=== PATIENT | male | born 1985 ===

== ENCOUNTER → 2016-05-15 | Outpatient (CLI) | payer OTHER ==
[2016-05-15 08:48] LABS: BASO % 1 % (0-3); EOS % 3 % (0-3); HEMOGLOBIN 15.2 g/dL (13.0-17.5); LYMPH # 1.8 x10^3/uL (1.0-4.8); LYMPH % 33 % (24-48); MEAN CORPUSCULAR HEMOGLOBIN 30 pg (25-35); MEAN CORPUSCULAR HGB CONC 35 g/dL (31-37); MEAN CORPUSCULAR VOLUME 86 fL (79-100); MONO % 9 % (0-9); NEUT % 55 % (31-73); PLATELET COUNT 155 x10^3/uL (140-400); RED BLOOD COUNT 5.13 x10^6/uL (4.30-5.70); RED CELL DISTRIBUTION WIDTH 12.9 % (11.5-14.5); WHITE BLOOD COUNT 5.4 x10^3/uL (4.0-11.0)
[2016-05-15 08:58] LABS: CREATININE 0.9 mg/dL (0.7-1.3); GFR 98.4; POTASSIUM 4.4 mmol/L (3.5-5.1)
[2016-05-15 09:00] LABS: CHOLESTEROL/HDL RATIO 4.4
[2016-05-15 09:04] LABS: FREE T4 0.86 ng/dL (0.76-1.46)
== END | disposition home or self-care (01) ==
LOC: LAB 08:18
DX: Z00.00 Encounter for general adult medical examination without abnormal findings (principal); Z13.29 Encounter for screening for other suspected endocrine disorder; Z13.220 Encounter for screening for lipoid disorders
CPT/HCPCS: 36415; 80048; 80061; 84439; 84443; 85027